=== PATIENT | male | born 1995 | race Caucasian/White ===

== ENCOUNTER → 2020-09-25 09:13 | Outpatient (BNVA) | payer OTHER, SELFPAY | PROVIDERS: Family Provider Family Medicine; PCP Nurse Practitioner Family; Visit Provider Nurse Practitioner Family | DX: N48.9 Disorder of penis, unspecified (principal); Z72.51 High risk heterosexual behavior; R36.9 Urethral discharge, unspecified; R30.0 Dysuria | CPT/HCPCS: 81000; 87491; 87530; 87591 ==

== ENCOUNTER 2024-01-24 17:54 | Outpatient (CLI) | payer OTHER, SELFPAY ==
[2024-01-24 20:47] LABS: HIV 1 & 2 Antibody Non-Reactive (Non-Reactiv); HIV 1 & 2 Antigen Non-Reactive (Non-Reactiv)
[2024-01-24 20:51] LABS: Hepatitis B Core AB, Total Non-Reactive (Nonreactive); Hepatitis B Surface Antigen Non-Reactive (Nonreactive); Hepatitis C Virus Antibody Non-Reactive (Nonreactive)
[2024-01-26 13:59] LABS: RPR w(Moniotor) w/REFL Titer NON-REACTIVE (NON-REACTIVE)
[2024-01-26 15:55] LABS: Cytomegalovirus IgG Antibody <0.60 U/mL
[2024-01-26 17:14] LABS: Chlamydia Trachomatis RNA TMA NOT DETECTED (NOT DETECTED); Neisseria Gonorrhoeae RNA, TMA NOT DETECTED (NOT DETECTED)
== END 2024-01-24 17:55 | disposition home or self-care (01) ==
LOC: LAB 17:57
PROVIDERS: PCP Nurse Practitioner Family; Visit Provider Specialist
DX: R53.83 Other fatigue (principal); Z20.6 Contact with and (suspected) exposure to human immunodeficiency virus [HIV]; E34.9 Endocrine disorder, unspecified
CPT/HCPCS: 36415; 86592; 86644; 86645; 86704; 86803; 86900; 87340; 87491; 87591; 87806